=== PATIENT | male | born 1980 | race Caucasian/White ===

== ENCOUNTER 2023-01-28 13:49 | Emergency (ER) | payer BC, OTHER ==
--- NOTE | 2023-01-28 14:01 | ED Physician Documentation ---
PD HPI UPPER EXT INJURY - Stated complaint Stated Complaint: CUT THUMB - Chief complaint Chief Complaint: Laceration - History obtained from History obtained from: Patient - Additonal information Additional information: Otherwise healthy 42-year-old gentleman with unknown tetanus status was using a ax just prior to arrival and cut his nondominant, left thumb. Pain is moderate. No other injuries. Last tetanus is unknown. PD PAST MEDICAL HISTORY - Present Medications Home Medications: Ambulatory Orders Medication Instructions Recorded Confirmed HYDROcod/ACETAM 5/325 [Bitely 5/325] 1 - 2 tab PO Q6H PRN #15 tablet 01/28/23 cephALEXin [Keflex] 500 mg PO Q6H #28 cap 01/28/23 - Allergies Allergies/Adverse Reactions: Allergies Allergy/AdvReac Type Severity Reaction Status Date / Time amoxicillin Allergy Rash Verified 01/28/23 13:56 Penicillins Allergy Rash Verified 01/28/23 13:56 PD ED PE NORMAL - Vitals Vital signs reviewed: Yes - General General: Alert and oriented X 3, No acute distress - Extremities Extremities: Other (There is a deep laceration of the left thumb over the distal phalanx that goes basically completely through the nail dorsally and then around on the ulnar side. He is insensate on both sides of the tip.) - Neuro Neuro: Alert and oriented X 3, Normal speech Results - Vitals Vitals: Vital Signs - 24 hr 01/28/23 01/28/23 13:53 14:09 Temperature 36.5 C Heart Rate 89 72 Respiratory 20 22 Rate Blood Pressure 137/79 H 130/86 H O2 Saturation 100 100 Oxygen O2 Source Room air - Rads (name of study) Left thumb x-ray demonstrates fracture through the distal phalanx Relevant Findings:: Final report received, EMP independent interpretation of test Procedures - Laceration (location) Left thumb Length in cm: 3 Wound type: Clean Tendon involvement: Tendon intact Anesthesia: Marcaine 0.5% (Digital block) Wound preparation: Hibiclens, Irrigated copiously NS, Other (The wound was relatively clean, it was thoroughly irrigated. I had to remove the distal part of the nail to affect closure.) Skin layer closure: Nylon, Interrupted, Size #-0 - enter number (4-0) Other: Patient tolerated well, No complications, Neurovascular intact, Tetanus booster given - Splint (location) - Minor Left thumb Splint applied by: Nurse Type of splint: Metal foam finger splint PD Medical Decision Making - ED course ED course: 42-year-old gentleman with a large laceration with open fracture of the left, nondominant thumb. Tetanus was updated and the wound was closed and dressed and placed in a splint by the nurse. I discussed the case with our on-call orthopedic surgeon Dr Steven who will have him follow-up with him. Departure - Departure Disposition: 01 Home, Self Care Clinical Impression: Open fracture of left thumb Qualifiers: Encounter type: initial encounter Phalanx: distal Fracture alignment: displaced Qualified Code(s): S62.522B - Displaced fracture of distal phalanx of left thumb, initial encounter for open fracture Laceration of left thumb Qualifiers: Encounter type: initial encounter Damage to nail status: with damage Foreign body presence: without foreign body Qualified Code(s): S61.112A - Laceration without foreign body of left thumb with damage to nail, initial encounter Condition: Good Record reviewed to determine appropriate education?: Yes Instructions: ED Fx Finger Open Follow-Up: Orthopedic Care [Provider Group] Prescriptions: cephALEXin [Keflex] 500 mg PO Q6H #28 cap HYDROcod/ACETAM 5/325 [Bitely 5/325] 1 - 2 tab PO Q6H PRN #15 tablet PRN Reason: Pain Comments: I sent your prescription electronically to [facility] in [place]. I discussed your case with our on-call orthopedist who would like to see you in follow-up. Call his office today or tomorrow for an appointment. For wound care you can wash it very briefly with soap and water and then keep it moistened with the antibiotic ointment and then reapply the metal foam finger splint. Do not work with that hand until advised it is safe to do so. Elevate is much as possible. The sutures will need to come out in about 2 weeks, but you should be seen in the orthopedics clinic well before that. I am prescribing a short course of narcotic pain medication for you. These are potentially dangerous and addictive medications that should be used carefully. These medications may constipate you. Take an cpyy-oco-wqfbuqx stool softener (docusate) twice daily with plenty of water while taking these medications. If you go 24 hours without a bowel movement, take ykqd-hqn-yfczyqb miralax, per package instructions. Do not drink or drive while taking these medications. If you received narcotic or sedating medications while in the emergency department, do not drive for 24 hours. Store this medication in a safe, secure place and out of reach of children. It is a violation of federal law to give or sell this medication to another person or to use in a manner other than prescribed. The ED will not refill narcotic prescriptions, including prescriptions lost or stolen. To dispose of unwanted medications: 1. [facility] at [address] in [place] has a medication drop box. They accept prescription medications (in p ill form) Saturday through Saturday 9:00 a.m. to 5:00 p.m. 2. The [facility] [employer] [facility] accepts prescription medications (in pill form only) for disposal year round. Call for more information. 3. Contact the [facility] for the next [facility] sponsored prescription drug collection event. , [phone], or [phone]; Note that many narcotic pain relievers also contain Tylenol/acetaminophen. Please ensure that your total dose of acetaminophen from all sources does not exceed 3 g (3000 mg) per day.
[2023-01-28] MEDS: BUPIVACAINE 0.5% PF 10 ML VIAL SUBQ STA (14:08)
[2023-01-28] MEDS: TETANUS/DIPHTHERIA/PERTUSSIS 0.5 ML SYRINGE IM ONE (14:08)
[2023-01-28 14:09] VITALS: BP 130/86
[2023-01-28] MEDS: cephALEXin 250 MG CAPSULE PO STA (14:17)
--- NOTE | 2023-01-28 14:27 | XRAY Report ---
PROCEDURE: Finger(s) LT INDICATIONS: thumb inj TECHNIQUE: AP hand, views of the finger(s) acquired. COMPARISON: None. FINDINGS: Bones: There is a comminuted fracture in the distal first phalangeal tuft with mild displacement. N o suspicious bony lesions. Soft tissues: No suspicious soft tissue calcifications or masses. Soft tissue laceration is noted. IMPRESSION: Comminuted fracture of the first distal phalanx. Reviewed by: Lelia Buchanan MD on 01/28/2023 2:26 PM PDT Approved by: Lelia Buchanan MD on 01/28/2023 2:26 PM PDT Station ID: [id number]
== END 2023-01-28 14:55 | disposition home or self-care (01) ==
LOC: ED 13:49
DX: S62.522B Displaced fracture of distal phalanx of left thumb, initial encounter for open fracture (principal); W27.0XXA Contact with workbench tool, initial encounter; Z23 Encounter for immunization; Z71.85 Encounter for immunization safety counseling
CPT/HCPCS: 12002; 73140; 90471; 90715; 99283; 99284; A9270

== ENCOUNTER 2023-03-12 08:00 | Outpatient (CLI) | payer BC ==
--- NOTE | 2023-03-12 17:01 | XRAY Report ---
PROCEDURE: Finger(s) LT INDICATIONS: LEFT THUMB FRACTURE TECHNIQUE: AP hand, 2 views of the left thumb acquired. COMPARISON: 01/28/2023 FINDINGS: Bones: Healing comminuted distal tuft fracture of distal phalanx of thumb, with expected interval pr ogress in healing. Soft tissues: No suspicious soft tissue calcifications or masses. IMPRESSION: Expected interval progress in healing of a comminuted distal tuft fracture of the distal phalanx of t he thumb. Reviewed by: Konstantin Rapp MD on 03/12/2023 5:00 PM PDT Approved by: Konstantin Rapp MD on 03/12/2023 5:00 PM PDT Station ID: [id number]
== END 2023-03-12 23:59 | disposition home or self-care (01) ==
LOC: DI.WOS 08:00
PROVIDERS: ATTEND Orthopaedic Surgery
DX: S62.522D Displaced fracture of distal phalanx of left thumb, subsequent encounter for fracture with routine healing (principal)